=== PATIENT | male | born 1955 | race Caucasian/White ===

== ENCOUNTER 2021-04-16 13:27 | Emergency (ER) | payer OTHER ==
[~2021-04-16] VITALS: Ht 172.7 cm; Wt 108.9 kg
[~2021-04-16 13:27] MED LIST: ALBUTEROL SULF8.5 GM INH; ALLERGY EYE DRO10 M1 OP; ALPHA LIPOIC A300 MG PO; AMLODIPINE BESY10 MG PO; ARNUITY ELLIP100 MCG INH; ASPIRIN81 MG PO; ATROVENT HFA12.9 GM INH; CONSTULOSE10 GM/15 M PO; CORGARD40 MG PO; COZAAR50 MG PO; CRESTOR10 MG PO; DOCUSATE SODIU250 MG PO; FLOVENT DISKU250 MCG INH; FLUCONAZOLE50 MG PO; FLUOXETINE HCL20 MG PO; GABAPENTIN600 MG PO; HUMALOG100 UNITS/ IV; HYDROCHLOROTHIA25 MG PO; ISOSORBIDE MONO30 MG PO; KEPPRA500 MG PO; LANTUS100 UNITS/ SUB-Q; LATANOPROST2.5 ML OPTH; LOTRIMIN AF24 GM TOP; MELOXICAM15 MG PO; NITROSTAT0.4 MG SL; OMEPRAZOLE20 MG PO; SIMVASTATIN20 MG PO; SYNTHROID50 MCG PO; TUDORZA PRESS400 MCG INH; ZYRTEC10 MG PO
[2021-04-16] MEDS ORDERED: METOPROLOL SUCC50 MG PO (15:46)
[2021-04-16] MEDS ORDERED: METFORMIN HCL500 M2 PO (15:46)
== END 2021-04-16 16:25 | disposition home or self-care (01) ==
LOC: ED 13:27
DX: N20.0 Calculus of kidney (principal); N28.1 Cyst of kidney, acquired; E27.8 Other specified disorders of adrenal gland; K74.60 Unspecified cirrhosis of liver; E11.9 Type 2 diabetes mellitus without complications; E78.00 Pure hypercholesterolemia, unspecified; I10 Essential (primary) hypertension; G40.909 Epilepsy, unspecified, not intractable, without status epilepticus; Z87.891 Personal history of nicotine dependence; Z88.2 Allergy status to sulfonamides; Z88.8 Allergy status to other drugs, medicaments and biological substances; Z79.4 Long term (current) use of insulin; Z79.82 Long term (current) use of aspirin; Z79.899 Other long term (current) drug therapy
CPT/HCPCS: 74176; 80053; 81001; 85025; 96374; 96375; 99284-25; J1885; J2405

== ENCOUNTER 2022-01-23 05:51 | Day surgery (SDC) | payer OTHER ==
[~2022-01-23] VITALS: Ht 172.7 cm; Wt 105.0 kg
[~2022-01-23 05:51] MED LIST changes: +ACETAZOLAMIDE250 MG; +METFORMIN HCL500 M2 PO; +METOPROLOL SUCC50 MG PO
--- NOTE | 2022-01-23 06:37 | NUR ---
PATIENT CBG 58, NEW ORDERS FOR DEXTROSE PER COOLER OPERATOR. ORDERS TO REPEAT BLOOD SUGAR 20 MINUTES AFTER ADMINISTERING DEXTROSE. PATIENT VERBALIZED UNDERSTANDING. STATED HE HAD HIS BLOOD SUGAR TAKEN THIS MORNING BEFORE ARRIVING AND WAS LOW BUT [facility].
--- NOTE | 2022-01-23 08:50 | NUR ---
01/23/22 0850 Savita Holguin 0808 PT ARRIVED IN PACU SLEEPY WITH NO C/O'S. ABD SOFT AND PASSING FLATUS. 0811 BLOOD SUGAR 76. NO NEW ORDERS. 0820 PT SITTING UP IN BED DRINKING JUICE AND EATING PUDDING. 0830 UP TO BATHROOM. VOIDED 300ML AND PASSING FLATUS. 0847 LEFT VIA W/C WITH TRANSPORT GUARDS.
--- NOTE | 2022-01-23 10:46 | OR ---
[facility] [address] [place], [place] [address] Signed DATE OF OPERATION: 01/23/2022 SURGEON: Juan Plascencia MD PREOPERATIVE DIAGNOSES: 1. History of polyps. 2. Chronic constipation. POSTOPERATIVE DIAGNOSIS: Polyps x1, right colon. PROCEDURE: Total colonoscopy to cecum with cold snare polypectomy x1. ANESTHESIA: Intravenous sedation, propofol infusion, Ghanshyam Simon CRNA INDICATIONS: This 66-year-old white man is a prisoner at [facility] and a patient of SHELBY Smith. He was referred for colonoscopy on the basis of history of polyps. He is said to have had polyps excised elsewhere. He is currently a prisoner at [facility] and he is symptom free, having no bleeding, diarrhea or constipation. He has previously undergone upper endoscopy as well. He has a history of coronary artery bypass, cirrhosis, COPD and history of COVID. He has more recently complained of constipation. He has been treated for hepatitis C. He is admitted at this time to undergo colonoscopy for surveillance. He understands the risks of bleeding, infection, and perforation. FINDINGS: The prep was good. Complete colonoscopy was undertaken to the cecum without question. He had a single sessile polyp in the distal ascending colon which was excised with cold snare technique. Complete excision was accomplished. The remaining colon was normal. PROCEDURE: The patient was taken to the surgical endoscopy suite and placed in the lateral decubitus position, given intravenous sedation with propofol infusional technique with full cardiopulmonary monitoring. Digital rectal examination was found to be normal. An Olympus video colonoscope was passed in the rectum and manipulated throughout the colon ultimately intubating the cecum itself. The ileocecal valve and other cecal findings were normal. The scope was withdrawn and examination undertaken showing a Electronically Signed By: JUAN PLASCENCIA MD 01/23/22 1046 PATIENT NAME: SHU CASEY OPERATIVE REPORT DATE OF : 55 REPORT #: [id number] PHYSICIAN: JUAN PLASCENCIA MD PCP: JOSI SORIANO REPORT IS CONFIDENTIAL AND NOT TO BE RELEASED WITHOUT AUTHORIZATION [facility] [address] [place] [id number] Signed small sessile polyp in the distal ascending colon. This was excised with cold snare technique. Complete excision was accomplished. The scope was further withdrawn and remaining colon was normal. Retroflexed view was normal as well. The scope was removed and the patient was taken to the recovery room in good condition. CONCLUDING DIAGNOSIS: Polyps x1. PLAN: Recommend repeat colonoscopy in three years, sooner if symptoms should occur. He will return to the ongoing care of SHELBY Smith. MD ELINA Gresham/VERONICA /[id number] cc: SHELBY Lange Copies: JOSI SORIANO ~ Electronically Signed By: JUAN PLASCENCIA MD 01/23/22 1046 PATIENT NAME: SHU CASEY OPERATIVE REPORT DATE OF : 55 REPORT #: [id number] PHYSICIAN: JUAN PLASCENCIA MD PCP: JOSI SORIANO REPORT IS CONFIDENTIAL AND NOT TO BE RELEASED WITHOUT AUTHORIZATION
--- NOTE | 2022-01-23 12:57 | EKG ---
[facility] [address] [facility] [place] [address] Signed Sinus rhythm with 1st degree AV block Possible Inferior infarct (cited on or before 06-SEP-2020) Abnormal ECG When compared with ECG of 06-SEP-2020 07:32, premature ventricular complexes are no longer present CT interval has increased Questionable change in QRS axis T wave inversion no longer evident in Inferior leads Nonspecific T wave abnormality, improved in Lateral leads Confirmed by TRESA DEAN MD ([id number]) on 01/23/2022 12:56:50 PM Electronically Signed By: TRESA DEAN MD 01/23/22 1257 PATIENT NAME: SHU CASEY Electrocardiogram DATE OF : 55 PHYSICIAN: TRESA DEAN MD REPORT #: [id number] REPORT IS CONFIDENTIAL AND NOT TO BE RELEASED WITHOUT AUTHORIZATION
--- NOTE | 2022-01-24 11:37 | PATH ---
[facility] [address] [place], [place] [address] Signed SPECIMEN(S): A PROXIMAL COLON POLYP SPECIMEN SOURCE: A. PROXIMAL COLON POLYP CLINICAL HISTORY: Colonoscopy. History of polyps. Postop: Polyps x 1. FINAL PATHOLOGIC DIAGNOSIS: Colon, proximal, polyp, polypectomy: - Fragments of tubular adenoma. - Negative for high-grade dysplasia or malignancy. NAL:cml:C2NR MICROSCOPIC EXAMINATION: Histologic sections of all submitted blocks are examined by light microscopy. These findings, together with the gross examination, support the pathologic diagnosis. GROSS DESCRIPTION: The specimen, labeled "HARTLEY, 1," and designated on the requisition "proximal colon polypectomy," is received in formalin and consists of three fragments of red-pink tissue (0.3 cm in greatest dimension). The specimen is submitted entirely in cassette (A1). AC (under the direct supervision of a pathologist) The Gross Description was prepared using a voice recognition system. The report was reviewed for accuracy; however, sound-alike word errors, addition and/or deletions may occur. If there is any question about this report, please contact Client Services. PERFORMING LABORATORY: The technical component was performed by [facility], [address] [place] [id number] (CLIA# [id number]). [facility] [address] [address] (CLIA# [id number]). Diagnostician: Ariane Sylvester MD Pathologist Electronically Signed 01/24/2022 PATIENT NAME: SHU CASEY PATHOLOGY DATE OF : 55 REPORT #: [id number] PHYSICIAN: JORDAN EDGAR PCP: JOSI SORIANO REPORT IS CONFIDENTIAL AND NOT TO BE RELEASED WITHOUT AUTHORIZATION [address] [place], [place] [address] Signed Copies: ~ [facility] : 55 REPORT #: [id number] PHYSICIAN: JORDAN PATHOLOGY PCP: JOSI SORIANO REPORT IS CONFIDENTIAL AND NOT TO BE RELEASED WITHOUT AUTHORIZATION
== END 2022-01-23 08:47 | disposition home or self-care (01) ==
LOC: DS 05:51 → OPS 05:51 → DS 07:30 → OPS 08:47 → DS 11:00 → OPS 11:00
PROVIDERS: ATTEND Surgery
PROC: 0DBF8ZX Excision of Right Large Intestine, Via Natural or Artificial Opening Endoscopic, Diagnostic (ICD-10-PCS; principal; 2022-01-23 06:45)
DX: D12.2 Benign neoplasm of ascending colon (principal); J44.9 Chronic obstructive pulmonary disease, unspecified; G20 Parkinson's disease; I10 Essential (primary) hypertension; I25.2 Old myocardial infarction; B19.20 Unspecified viral hepatitis C without hepatic coma; E66.01 Morbid (severe) obesity due to excess calories; K43.2 Incisional hernia without obstruction or gangrene; H26.9 Unspecified cataract; Z86.19 Personal history of other infectious and parasitic diseases; Z86.16 Personal history of COVID-19; Z90.49 Acquired absence of other specified parts of digestive tract
CPT/HCPCS: 36415; 80053; 85025; 93005; 93010; J2001; J2704; J7121

== ENCOUNTER 2022-02-13 05:47 | Day surgery (SDC) | payer OTHER ==
[2022-02-13] MEDS ORDERED: IBUPROFEN600 MG PO (09:03)
[2022-02-13] MEDS ORDERED: HYDROCODON-ACE1 EA10 PO (09:03)
[2022-02-13] MEDS ORDERED: ACETAMINOPHEN500 MG PO (09:04)
--- NOTE | 2022-02-13 09:21 | NUR ---
02/13/22 0921 Savita Holguin 0848 PT ARRIVED IN PACU NON RESPONSIVE TO NOXIOUS STIMULI WITH OPA IN PLACE. CLASSIFICATION CONTROL CLERK DOING JAW THRUST, WHILE BREATHING SOUNDED "WET". ORAL SUCTIONING DONE. RN TOOK OVER JAW THRUST. 0853 PT COUGHING. OPA REMOVED AND ORALY SUCTIONED. 0905 RESTING. NO C/O'S. 0916 C/O ABD PAIN 6.5/10. FENTANYL 50MCG GIVEN IVP. 09 SATS DROPPED TO 86% ON RA. ENCOURAGED COUGH, DEEP BREATHING. SATS INCREASED TO 88%. O2 @2L VIA NC PLACED. SATS 90-95%. TRANSPORT GUARDS AT BEDSIDE DURING RECOVERY.
--- NOTE | 2022-02-13 09:52 | NUR ---
PT RESTING IN BED WITH EYES CLOSED, RESP EVEN AND UNLABORED IN 2L NC. [facility] GUARDS AT BEDSIDE. PT DENIES NAUSEA OR PAIN WHEN ASKED, STATES "JUST A LITTLE ITCH ON MY NOSE." PT PROVIDED ICED WATER AND PUDDING PER REQUEST.
--- NOTE | 2022-02-13 10:16 | NUR ---
PT TOLERATES FIRST PUDDING WELL WITH NO N/V AND PROVIDED SECOND PER REQUEST. PT STATES "MY PAIN HAS DECREASED 5.9 FROM 6.2" REPORTS TOLERABLE. [facility] GUARDS REMAIN AT BEDSIDE.
--- NOTE | 2022-02-13 11:29 | NUR ---
[id number]: O2 REMOVED AND PT ABLE TO MAINTAIN SATS GREATER THAN 90% ON RA. PT ENCOURAGED TO DRINK WATER AND NOTIFY RN OF URGE TO VOID. [id number]: PT UP TO BATHROOM WITH RN AND GUARD WITH FOOT CUFFS IN PLACE. PT ABLE TO VOID 200 MLS CONCENTRATED YELLOW URINE WITH NO PROBLEMS. BACK TO DS RM 10 TO GET DRESSED FOR DC WITH TWO [facility] GUARDS. [id number]: DC INSTRUCTIONS PRESENTED VERBALLY AND WRITTEN TO PT, DC ENVELOPE PROVIDED TO GUARD WITH PAIN RX. IV REMOVED AND COBAN PRESSURE DRESSING PLACED AND ENCOURAGED TO REMOVED IN APPROX 15 MINUTES. PT DC VIA WC WITH TRANSPORT GUARDS TO [facility]. [id number]: REPORT CALLED TO KETURAH BAUMANN AT [facility].
--- NOTE | 2022-02-13 16:17 | NUR ---
[id number]: PT INHALER FOUND IN OR AND [facility] NOTIFIED. INHALER PLACED IN PLASTIC BAG WITH PT NAME AND GIVEN TO SWITCH BOARD FOR [facility] TO RETRIEVE.
--- NOTE | 2022-02-14 15:34 | OR ---
[facility] [address] [place], [place] [address] Signed DATE OF OPERATION: 02/13/2022 SURGEON: Juan Plascencia MD PREOPERATIVE DIAGNOSES: 1. Incarcerated incisional hernia at umbilicus (history of laparoscopic procedure). 2. Morbid obesity. 3. Numerous medical problems including chronic obstructive pulmonary disease. 4. History of coronary artery bypass grafting. 5. Cirrhosis (without ascites). POSTOPERATIVE DIAGNOSIS: Incarcerated incisional hernia (omentum and portion of transverse colon). PROCEDURES: 1. Repair of incarcerated incisional hernia at umbilicus. 2. Implantation of Prolene mesh (underlay technique with closure of fascia). ANESTHESIA: General endotracheal; Kelsea Amanda CRNA and local 10 mL of 0.25% Marcaine with epinephrine. INDICATIONS: This 66-year-old white man is a patient of Josi Soriano at [facility], where he has been incarcerated for quite some time. He underwent a laparoscopic cholecystectomy in the past and has developed a hernia in the region of the umbilicus related to the trocar site. Initially, the hernia was reducible and seen initially in November of 2021. In the meantime, the hernia is somewhat increased in size and is not reducible and consistent with incarcerated incisional hernia. He has no signs of bowel obstruction. No sign of local erythema. He is admitted to undergo repair of the hernia, understands the risks of bleeding, infection, recurrence, and so on. FINDINGS: Incarcerated viscus was that of the omentum and small portion of the transverse colon, this was ultimately reduced. The fascial defect was relatively small between 2 and 3 cm overall. Implantation of Prolene mesh was undertaken in the properitoneal space and transverse, reapproximated the fascial layer undertaken as well. He tolerated the procedure well. Notably, he did have a fair amount of coughing and straining at conclusion of procedure at the time of extubation, which abdominal wall stabilization was undertaken. There was no clinical evidence of disrupted repair despite all of the Electronically Signed By: JUAN PLASCENCIA MD 02/14/22 1534 PATIENT NAME: SHU CASEY OPERATIVE REPORT DATE OF : 55 REPORT #: [id number] PHYSICIAN: JUAN PLASCENCIA MD PCP: JOSI SORIANO REPORT IS CONFIDENTIAL AND NOT TO BE RELEASED WITHOUT AUTHORIZATION [facility] [address] [place], [place] [address] Signed straining. DESCRIPTION OF PROCEDURE: The patient was brought to the operating room, given a general endotracheal anesthetic. Preoperative antibiotic Ancef was given. Sequential compressive stockings used and heparin continuously administered. The umbilical fold was relatively deep and the hernia was rather bulky about the size of a tennis ball. It was not reducible despite relaxation. Cleansing of the skin was undertaken with chlorhexidine solution. A curvilinear incision was made in the lateral aspect of the umbilical fold. Dissection carried through the skin and dermis with sharp dissection. Noted immediately was herniated fat, this was freed circumferentially showing the fascial defect to be only about 2-3 cm at most. Despite every effort, the hernia could not be reduced at that point. The hernia sac was opened and the hernia contents examined and found to be incarcerated omentum with small portion of transverse colon. This was sequentially ultimately reduced in the entire incarcerated portion back into the abdominal cavity. A plane was developed between the hernia sac (peritoneal layer) and the overlying fascia. Circumferential clearing was undertaken at least 2-3 cm. The redundant hernia sac was excised and then reapproximated with a running 2-0 Vicryl suture. A circular piece of Prolene mesh was secured to the properitoneal space with interrupted 0-Prolene suture. This covered the defect fully. The fascia was then reapproximated transversely with interrupted vertical mattress 0-Prolene with Prolene pledgets. A 10 mL of 0.25% Marcaine with epinephrine injected locally. Nallely layer was reapproximated with interrupted 2-0 Vicryl. The skin was closed with running subcuticular 3-0 Vicryl. Steri-Strips were applied as was an Acticoat dressing. During the time with emergence from anesthesia, he had a fair amount of straining and so forth the abdominal wall stabilized as best could be. I felt no disruption of fascial repair. Ultimately, the straining ceased and he appeared to be doing well. Abdominal binder was applied. The patient was ultimately transferred to the recovery room in good condition, having suffered no complication. Sponge, needle, and instrument count reported correct x3. MD ELINA Gresham/MODL /[id number] Electronically Signed By: JUAN PLASCENCIA MD 02/14/22 1534 PATIENT NAME: SHU CASEY OPERATIVE REPORT DATE OF : 55 REPORT #: [id number] PHYSICIAN: JUAN PLASCENCIA MD PCP: JOSI SORIANO REPORT IS CONFIDENTIAL AND NOT TO BE RELEASED WITHOUT AUTHORIZATION [facility] [address] [place], [place] [address] Signed cc: SHELBY Lange Copies: JOSI SORIANO ~ Electronically Signed By: JUAN PLASCENCIA MD 02/14/22 1534 PATIENT NAME: SHU CASEY JOSE OPERATIVE REPORT DATE OF : 55 REPORT #: [id number] PHYSICIAN: JUAN PLASCENCIA MD PCP: JOSI SORIANO REPORT IS CONFIDENTIAL AND NOT TO BE RELEASED WITHOUT AUTHORIZATION
== END 2022-02-13 11:00 | disposition home or self-care (01) ==
LOC: DS 05:47
PROVIDERS: ATTEND Surgery
PROC: 0WUF0JZ Supplement Abdominal Wall with Synthetic Substitute, Open Approach (ICD-10-PCS; principal; 2022-02-13 06:45)
DX: K43.0 Incisional hernia with obstruction, without gangrene (principal); G20 Parkinson's disease; E66.01 Morbid (severe) obesity due to excess calories; J44.9 Chronic obstructive pulmonary disease, unspecified; Z95.1 Presence of aortocoronary bypass graft; K74.60 Unspecified cirrhosis of liver; I44.0 Atrioventricular block, first degree; Z86.16 Personal history of COVID-19; Z90.49 Acquired absence of other specified parts of digestive tract; I25.2 Old myocardial infarction; K59.09 Other constipation
CPT/HCPCS: 71045; J0690; J1100; J1644; J1885; J2250; J2370; J2405; J2704; J3010; J7121

== ENCOUNTER 2022-10-11 07:45 | Emergency (ER) | payer OTHER ==
[~2022-10-11] VITALS: Ht 172.7 cm; Wt 109.0 kg
[~2022-10-11 07:45] MED LIST changes: +ACETAMINOPHEN500 MG PO; -ASPIRIN81 MG PO; -GABAPENTIN600 MG PO; +HYDROCODON-ACE1 EA10 PO; +IBUPROFEN600 MG PO; -ISOSORBIDE MONO30 MG PO; +ISOSORBIDE MONO60 MG PO; +LO-DOSE ASPIRIN81 MG PO; -MELOXICAM15 MG PO; +MELOXICAM7.5 MG PO; -METOPROLOL SUCC50 MG PO; +NEURONTIN400 MG PO; -OMEPRAZOLE20 MG PO; +OMEPRAZOLE40 MG PO; -SYNTHROID50 MCG PO; +SYNTHROID75 MCG PO; +TOPROL XL50 MG PO
[2022-10-11] MEDS ORDERED: SEMGLEE (Y100 UNIT/1 SUB-Q ×2 (08:04→08:05)
[2022-10-11] MEDS ORDERED: SINEMET 25-1001 EACH PO (08:09)
[2022-10-11] MEDS ORDERED: BRIMONIDINE TART5 ML OU (08:11)
[2022-10-11] MEDS ORDERED: COSOPT PF EYE1 EACH OS (08:12)
[2022-10-11] MEDS ORDERED: DOCUSATE SODIU250 MG PO (08:13)
[2022-10-11] MEDS ORDERED: NOVOLIN R100 UNIT/1 INJ (08:23)
[2022-10-11] MEDS ORDERED: AIRDUO RESPICL1 EAC1 INH (08:26)
--- NOTE | 2022-10-12 21:24 | EKG ---
[facility] [address] [facility] [place], [place] [address] Signed Sinus rhythm with 1st degree AV block Possible Left atrial enlargement Nonspecific ST and T wave abnormality Abnormal ECG No previous ECGs available Confirmed by TRESA DEAN MD ([id number]) on 10/12/2022 9:24:42 PM Electronically Signed By: TRESA DEAN MD 10/12/222123 PATIENT NAME: SHU CASEY JOSE Electrocardiogram DATE OF : 55 PHYSICIAN: TRESA DEAN MD REPORT #: [id number] REPORT IS CONFIDENTIAL AND NOT TO BE RELEASED WITHOUT AUTHORIZATION
== END 2022-10-11 12:10 | disposition short-term general hospital (02) ==
LOC: ED 07:45
DX: I21.4 Non-ST elevation (NSTEMI) myocardial infarction (principal); I50.9 Heart failure, unspecified; E11.9 Type 2 diabetes mellitus without complications; E78.00 Pure hypercholesterolemia, unspecified; F43.10 Post-traumatic stress disorder, unspecified; G40.909 Epilepsy, unspecified, not intractable, without status epilepticus; I11.0 Hypertensive heart disease with heart failure; Z88.8 Allergy status to other drugs, medicaments and biological substances; Z79.899 Other long term (current) drug therapy; Z79.82 Long term (current) use of aspirin; Z79.4 Long term (current) use of insulin; Z20.822 Contact with and (suspected) exposure to COVID-19
CPT/HCPCS: 36415; 36600; 71045; 80053; 82803; 83880; 84484; 85025; 85730; 87502; 93005; 93010; 94640; 96374; 96375; 99285-25; C9803; J1644; J1940; U0003

== ENCOUNTER 2022-10-14 18:52 | Emergency (ER) | payer OTHER ==
[~2022-10-14] VITALS: Ht 172.7 cm; Wt 108.9 kg
[~2022-10-14 18:52] MED LIST changes: +AIRDUO RESPICL1 EAC1 INH; +BRIMONIDINE TART5 ML OU; +COSOPT PF EYE1 EACH OS; +NOVOLIN R100 UNIT/1 INJ; +SEMGLEE (Y100 UNIT/1 SUB-Q; +SINEMET 25-1001 EACH PO
--- OUTSIDE RECORDS SUMMARY | 2022-10-14 18:58 | XMS ---
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 Norberto has no Care Guidelines for this patient. [facility] VIS[facility] (12 MO.) [facility] NOTE: Visits indicate total known visits. ED/[facility] VISIT TRACKING (12 MO.) [facility]: Emergency COMPLAINT: - SHORTNESS OF BREATH 10/11/2022 07:45 SUSANNE Fisher OR TYPE: Emergency COMPLAINT: - SOB INPATIENT VISIT TRACKING (12 MO.) 10/11/2022 13:[address] [place] [address] Kalee ORELLANA TYPE: Medical Surgical DIAGNOSES: - CHF vs NSTEMI - Acute systolic (congestive) heart failure [email or web address]
[2022-10-14] MEDS ORDERED: PRIMIDONE50 MG PO (19:15)
[2022-10-14] MEDS ORDERED: NADOLOL40 MG PO (19:15)
[2022-10-14] MEDS ORDERED: FUROSEMIDE20 MG PO (19:17)
--- NOTE | 2022-10-16 14:02 | EKG ---
[facility] [address] [facility] [place] [address] Signed Sinus bradycardia with 1st degree AV block Abnormal QRS-T angle, consider primary T wave abnormality Abnormal ECG When compared with ECG of 11-OCT-2022 07:47, Nonspecific T wave abnormality no longer evident in Inferior leads Nonspecific T wave abnormality, improved in Lateral leads Confirmed by TRESA DEAN MD ([id number]) on 10/16/2022 2:02:16 PM Electronically Signed By: TRESA DEAN MD 10/16/22 1402 PATIENT NAME: SHU CASEY Electrocardiogram DATE OF : 55 PHYSICIAN: TRESA DEAN MD REPORT #: [id number] REPORT IS CONFIDENTIAL AND NOT TO BE RELEASED WITHOUT AUTHORIZATION
== END 2022-10-14 22:34 | disposition home or self-care (01) ==
LOC: ED 18:52
DX: R41.0 Disorientation, unspecified (principal); I11.0 Hypertensive heart disease with heart failure; I50.9 Heart failure, unspecified; I25.2 Old myocardial infarction; Z20.822 Contact with and (suspected) exposure to COVID-19; E11.9 Type 2 diabetes mellitus without complications; E78.00 Pure hypercholesterolemia, unspecified; G40.909 Epilepsy, unspecified, not intractable, without status epilepticus; Z87.891 Personal history of nicotine dependence; Z88.8 Allergy status to other drugs, medicaments and biological substances; Z79.899 Other long term (current) drug therapy; Z79.4 Long term (current) use of insulin
CPT/HCPCS: 36415; 70450; 71045; 80053; 81001; 83880; 84484; 85025; 87502; 93005; 93010; 94640; 99285-25; C9803; U0003

== ENCOUNTER 2023-05-23 17:11 | Emergency (ER) | payer OTHER ==
[~2023-05-23] VITALS: Ht 172.7 cm; Wt 108.9 kg
[~2023-05-23 17:11] MED LIST changes: +FUROSEMIDE20 MG PO; +NADOLOL40 MG PO; +PRIMIDONE50 MG PO
[2023-05-23 19:09] VITALS: BP 122/82
== END 2023-05-23 19:09 | disposition home or self-care (01) ==
LOC: ED 17:11
DX: M70.41 Prepatellar bursitis, right knee (principal); E11.9 Type 2 diabetes mellitus without complications; E78.00 Pure hypercholesterolemia, unspecified; I11.0 Hypertensive heart disease with heart failure; F43.10 Post-traumatic stress disorder, unspecified; I50.9 Heart failure, unspecified; G40.909 Epilepsy, unspecified, not intractable, without status epilepticus; Z87.891 Personal history of nicotine dependence; Z88.8 Allergy status to other drugs, medicaments and biological substances; Z79.899 Other long term (current) drug therapy; Z79.4 Long term (current) use of insulin
CPT/HCPCS: 73560; 73700; 99284-25

== ENCOUNTER 2023-05-28 13:55 | Inpatient (IN) | payer OTHER ==
[~2023-05-28] VITALS: Ht 172.7 cm; Wt 113.9 kg
[~2023-05-28 13:55] MED LIST changes: -ALBUTEROL SULF8.5 GM INH; -FUROSEMIDE20 MG PO; +LASIX40 MG PO; -LATANOPROST2.5 ML OPTH; +OMEPRAZOLE20 MG PO; -OMEPRAZOLE40 MG PO; +SYNTHROID100 MCG PO; -SYNTHROID75 MCG PO; +VENTOLIN HFA18 GM INH; +XALATAN2.5 ML OU
--- OUTSIDE RECORDS SUMMARY | 2023-05-28 14:02 | XMS ---
PreManage Notification: SHU CASEY Security Manager Route Events No recent Security Events currently on file CRITERIA MET - [facility] - 2 Visits in 30 Days CARE PROVIDERS There are no care providers on record at this time. Norberto has no Care Guidelines for this patient. [place] VISIT COUNT (12 MO.) 4 [facility] T[facility] 4 NOTE: Visits indicate total known visits. ED/C VISIT TRACKING (12 MO.) 05/28/2023 13:[address] [facility] [address] [place] OR TYPE: Emergency COMPLAINT: - R LEG SWOLLEN/RED/HOT 05/23/2023 17:12 SUSANNE Fisher OR TYPE: Emergency COMPLAINT: - WOUND CHECK DIAGNOSES: - Allergy status to other drugs, medicaments and biological substances - Epilepsy, unspecified, not intractable, without status epilepticus - Heart failure, unspecified - Hypertensive heart disease with heart failure - terminal operator (current) use of insulin - Other computer terminal operator (current) drug therapy - Personal history of nicotine dependence - Post-traumatic stress disorder, unspecified - Prepatellar bursitis, right knee - Pure hypercholesterolemia, unspecified - Type 2 diabetes mellitus without complications 10/14/2022 18:52 SUSANNE Fisher [place] TYPE: Emergency COMPLAINT: - SHORTNESS OF BREATH DIAGNOSES: - Allergy status to other drugs, medicaments and biological substances - Contact with and (suspected) exposure to COVID-19 - Disorientation, unspecified - Epilepsy, unspecified, not intractable, without status epilepticus - Heart failure, unspecified - Hypertensive heart disease with heart failure - half-way (current) use of insulin - Old myocardial infarction - Other computer terminal operator (current) drug therapy - Personal history of nicotine dependence - Pure hypercholesterolemia, unspecified - Shortness of breath - Type 2 diabetes mellitus without complications 10/11/2022 07:45 SUSANNE Fisher [place] TYPE: Emergency COMPLAINT: - SOB DIAGNOSES: - Allergy status to other drugs, medicaments and biological substances - Contact with and (suspected) exposure to COVID-19 - Epilepsy, unspecified, not intractable, without status epilepticus - Heart failure, unspecified - Hypertensive heart disease with heart failure - half-way (current) use of aspirin - terminal operator (current) use of insulin - Non-ST elevation (NSTEMI) myocardial infarction - Other fci (current) drug therapy - Post-traumatic stress disorder, unspecified - Pure hypercholesterolemia, unspecified - Shortness of breath - Type 2 diabetes mellitus without complications INPATIENT VISIT TRACKING (12 MO.) 10/11/2022 13:42 [place] Yvette ORELLANA (Lucia Myers) TYPE: Medical Surgical DIAGNOSES: - Acute systolic (congestive) heart failure - CHF vs NSTEMI [email or web address]
[2023-05-28 17:43] LABS: HEMATOCRIT 35.8 % (35.0-50.0); HEMOGLOBIN 11.6 g/dL (12.0-18.0); MCHC 32.5 g/dl (30-36); MCV 86.3 fl (81-99); PLATELET COUNT 255 K/uL (140-440); RBC 4.15 M/ul (4.3-5.7); RDW 14.6 (10.5-15.0)
[2023-05-28 17:51] LABS: ALBUMIN/GLOBULIN RATIO 0.57 (1.1-2.4); ANION GAP 11.4 (7-21); BILIRUBIN, TOTAL 0.7 ng/dL (0.2-1.0); BUN/CREATININE RATIO 25.67 (6.0-28.6); CREATININE, SERUM 1.48 mg/dL (0.70-1.30); POTASSIUM 4.4 mmol/L (3.5-5.1); PROTEIN, TOTAL 8.3 g/dL (6.4-8.2)
[2023-05-28 18:25] LABS: BASOPHILS, MANUAL DIFF 1; EOSINOPHILS, MANUAL DIFF 2; LYMPHOCYTES, MANUAL DIFF 8; MONOCYTES, MANUAL DIFF 15; NEUTROPHILS, MANUAL DIFF 74
[2023-05-28 19:47] LABS: INFLUENZA B NAA NEGATIVE (NEGATIVE); RESPIRATORY SYNCYTIAL VIR NAA NEGATIVE (NEGATIVE)
--- NOTE | 2023-05-28 21:05 | NUR ---
PT ADMITTED TO ROOM 109 FROM ED. A/O;
[2023-05-28 21:10] VITALS: BP 151/57
--- NOTE | 2023-05-28 22:09 | NUR ---
Pt arrived to rm 109 from the ER via stretcher. 4 persons to slide Pt over to bed. Pt c/o pain to Rt knee. Redness and heat noted. small amount of drainage present from MD aspiration. Pt has 2 correction officers with, provided coffee and water as needed. BG 81, Pt given sandwhich , coffee and water. Skin assessment completed.
--- NOTE | 2023-05-28 23:00 | NUR ---
GUARDS ASKED IF PT CAN EAT THE FOOD THAT HE BROUGHT FROM THE RETIREMENT, PERMISSION GIVEN. USES URINAL WITH ASSISTANCE.
--- NOTE | 2023-05-29 00:55 | NUR ---
report received from charger tester bella, this rn to take over pt care at this time. pt resting quietly in bed with eyes closed, awoke to voice. denies needs or concerns, guards x2 in room. eoci restraints in place. reddness noted in circular shape on top of knee cap area. iv site wnl, fluids infusing as directed.
--- NOTE | 2023-05-29 05:21 | NUR ---
SEE PAPER CHARTING REGARDING DOCUMENTION FROM 0100 TO 0520, DUE TO MEDI-TECH DOWN TIME.
[2023-05-29 05:47] LABS: BASOPHILS 0.2 % (0-2); EOSINOPHILS 2.7 % (0-6); HEMATOCRIT 34.1 % (35.0-50.0); HEMOGLOBIN 10.9 g/dL (12.0-18.0); LYMPHOCYTES 10.3 % (24-44); MCH 27.6 (27-36); MCHC 31.9 g/dl (30-36); MCV 86.7 fl (81-99); MONOCYTES 8.5 % (0-12); NEUTROPHILS 78.3 % (39-80); PLATELET COUNT 228 K/uL (140-440); RBC 3.94 M/ul (4.3-5.7); RDW 14.4 (10.5-15.0)
[2023-05-29 06:15] LABS: ALBUMIN 2.6 g/dL (3.4-5.0); ALBUMIN/GLOBULIN RATIO 0.54 (1.1-2.4); BILIRUBIN, TOTAL 0.6 ng/dL (0.2-1.0); BUN/CREATININE RATIO 22.4 (6.0-28.6); CALCIUM 8.8 mg/dL (8.5-10.1); CREATININE, SERUM 1.25 mg/dL (0.70-1.30); MAGNESIUM 1.9 mg/dL (1.8-2.4); PHOSPHORUS, INORGANIC 3.6 mg/dL (2.5-4.9); PROTEIN, TOTAL 7.4 g/dL (6.4-8.2)
[2023-05-29 06:37] VITALS: BP 156/78
--- NOTE | 2023-05-29 06:50 | NUR ---
in room to round on pt, vs and i&o's collected. pt heavily incontinent of urine, pt educated to use call light when having to void and staff will assist with urinal. guards x2 remains in room. bola care done and new attends in place, pt boosted in bed. spo2 upper 80's to low 90's, does not sustain in the 90's, hx sleep apnea. pt placed on 1lnc, spo2 now sustaining in the 90's. iv site wnl, fluids infusing as directed. pt forgetful regarding exact date, reoriented. no additional needs, reddness remains unchanged compared to start of [facility].
--- NOTE | 2023-05-29 07:20 | NUR ---
PT REPORT RECEIVED FROM KETURAH MCKINNEY. PT IS RESTING IN BED, WAIST AND ANKLE SHACKLES ON, EYES CLOSED, TELEVISION ON, 2 CORRECTIONAL OFFICERS IN ROOM WITH PT. PT BREATHING IS REGULAR, EVEN, AND NON-LABORED AND HE AWAKES EASILY TO QUIET NOISE. PT DENIES NEEDS AT THIS TIME. ENCOURAGED TO USE CALL LIGHT WHEN HE NEEDS TO URINATE OR HAVE A BM RATHER THAN VOID OR DEFECATE IN HIS PANTS. PT VERBALIZED UNDERSTANDING.
--- NOTE | 2023-05-29 08:33 | NUR ---
RESPOND TO CALL LIGHT. PT NEEDS TO HAVE A BM. 2-PERSON ASSIST PT TO A SEATED POSITION AT THE EDGE OF THE BED (THIS RN AND ONE OFFICER, WHO EVENTUALLY OBTAINED PERMISSION TO REMOVE ONE WRIST SHACKLE). PT KEPT REPEATING "THIS IS IMPOSSIBLE". PRAISED PT FOR HIS EFFORTS AND SPOKE ENCOURAGINGLY TO HIM WHILE DIRECTING HIS MOVEMENTS TO THE BSC THAT WAS PLACED PERPENDICULAR TO THE BED. PT STATES HE CAN STAND, AND SHUFFLE, BUT NOT WITHOUT PAIN IN HIS RIGHT KNEE. PT HAD A MEDIUM SOFT FORMED BM AND URINATED ON THE FLOOR IN FRONT OF HIM WHILE SEATED ON THE COMMODE. MALE OFFICER REMAINED IN ROOM WITH PT AND ASSISTED THIS RN WITH ASSISTING PT WITH HIS MOVEMENTS OFF THE COMMODE AND BACK IN TO BED. GENNA CARE PROVIDED TO PT AND A CLEAN BRIEF PUT ON. MANUFACTURER REPRESENTATIVE REQUESTED SBA FROM THIS RN WHILE HE ADJUSTED THE PT'S BELLY CHAINS. PT WAS EASILY REDIRECTED WHEN HE BEGAN TO SPEAK NEGATIVELY ABOUT MOVING. BREAKFAST TRAY IN ROOM, POSITIONED IN FRONT OF PT AT THE HEIGHT LEVEL HE REQUESTED, FRESH ICED WATER PROVIDED. RE-EDUCATED ALL PARTIES ON LOCATIONS OF CALL LIGHTS. NO FURTHER NEEDS AT THIS TIME.
--- NOTE | 2023-05-29 09:15 | NUR ---
ASSESSMENT COMPLETE. PER AM REPORT PATIENT TO CONTINUE IV ABX AND ORTHO CONSULT PENDING. PATIENT TO RETURN TO [facility] WHEN STABLE.
--- NOTE | 2023-05-29 10:10 | NUR ---
RECIEVED HAND OFF REPORT FROM KETURAH DUMONT. PT LAYING IN BED, AWAKE. PT IS CONCERNED ABOUT WHY HE ISNT RECIEVING THE MEDICATIONS HE NORMALLY TAKES. EXPLAINED I JUST CAME ON SHIFT AND WILL LOOK INTO THE MEDICATIONS. ASSESSED PTS RIGHT KNEE. REDDNESS NOTED THAT SPREADS BEHIND KNEE CAP. WARM TO THE TOUCH WITH 1+ PITTING EDEMA AROUND KNEE. ABRASION LOCATED ON THE KNEECAP, NO DRAINAGE NOTED. CALL LIGHT IN REACH. GUARDS AT BEDSIDE.
[2023-05-29 10:30] VITALS: BP 150/72
--- NOTE | 2023-05-29 11:14 | NUR ---
UR NOTE MCG CELLULITIS (ISC) INPATIENT 05/29/23 MET CRITERIA GL DAY 1
[2023-05-29] MEDS ORDERED: CLOPIDOGREL75 MG PO (13:29)
--- NOTE | 2023-05-29 13:45 | NUR ---
PT ON BEDSIDE COMMODE. THIS RN AND RALPH JONES IN ROOM TO ASSIST PT BACK TO BED. PT URINATED ON FLOOR, CONTINENT BM. PT WAS ABLE TO PIVOT TO THE BED. CALL LIGHT IN REACH
[2023-05-29] MEDS ORDERED: INCRUSE ELLI62.5 MCG INH (14:07)
[2023-05-29] MEDS ORDERED: MIRALAX17 GM PO (14:14)
[2023-05-29] MEDS ORDERED: ARNUITY ELLIP100 MCG INH (14:15)
[2023-05-29] MEDS ORDERED: ADULT LOW DOSE81 MG PO (14:16)
[2023-05-29] MEDS ORDERED: COSOPT PF EYE1 EACH OS (14:18)
[2023-05-29] MEDS ORDERED: CARDURA1 MG PO (14:21)
[2023-05-29 14:25] VITALS: BP 158/77
[2023-05-29] MEDS ORDERED: CARAFATE1 GM PO (14:32)
[2023-05-29] MEDS ORDERED: FERROUS SULFAT324 MG PO (14:33)
[2023-05-29] MEDS ORDERED: DOXYCYCLINE HY100 MG PO (14:33)
[2023-05-29] MEDS ORDERED: PETROLATUM TOP (14:34)
[2023-05-29] MEDS ORDERED: TYLENOL325 MG PO (14:36)
[2023-05-29 18:50] VITALS: BP 143/60
--- NOTE | 2023-05-29 19:00 | NUR ---
ASSUMED CARE, PT IN BED, SLEEPING ON AND OFF. DINNER ON PT TRAY, ASKED IF HE WANTED TO EAT, HE STATES HE WILL EVENTUALLY. PT HAS 2 OFFICERS PRESENT. CALL LIGHT IN PLACE. BED LOW AND LOCKED.
--- NOTE | 2023-05-29 20:00 | NUR ---
PT ASLEEP IN BED. ENCOURAGED HIM TO WAKE AND EAT IF HE WANTED HIS TRAY. REMINDED HIS BS WAS GOING TO BE TAKEN SOON. PT AGREED AND ATE ABOUT 25%, STATES NOT VERY HUNGRY. PT HAS 2 OFFICERS PRESENT IN ROOM, HE IS SAFE, SHACKLES ARE REPOSITIONED FOR COMFORT AND SKIN CHECKED. PT USED URINAL.PAIN REAMINS THE SAME AOBUT AN 8 HE SAYS. REPOSITIONED PILLOW FOR COMFORT. PT STATES PX IMPROVED. WEARING 2L O2, CPOX 92%. PT FELL BEACK TO SLEEP. CALL LIGHT IN PLACE
[2023-05-29 20:36] VITALS: BP 163/72
--- NOTE | 2023-05-29 22:00 | NUR ---
PT HAS BEEN ASSISTANT PROFESSOR OF LIFE SCIENCES LIGHT FREQUENTLY, REPOSITONED, HE REQUESTED BLANKETS OFF, THEN WANTED BACK ON. FLUIDS PROVIDED. GUAZE APPLIED UNDER ARM CUFFS DUE TO RUBBING. CPAP ARRIVED AND PT WAS PLEASED, RT ADVISED AND SET UP. PT HAVING DRY BARKY COUGH. PHONED MD AND RECEIVED ORDER FOR DUONEBS. RT ADVISED. PT HAD IMPROVEMENT WITH DUONEB AND PUT CPAP BACK ON. CURRENTLY RESTING, CALL LIGHT IN PLACE. 2 OFFICERS AT BEDSIDE.
--- NOTE | 2023-05-29 22:23 | NUR ---
PT HAVING ASTHMA TYPE COUGH, NON PRODUCTIVE, LCTA. PT STATES HE TAKES 3 INHALERS. PHONED AND REC'D ORDER FOR DUONEB Q4 PRN
--- NOTE | 2023-05-30 | NUR ---
pt repositioned, used urinal, fluids and ensure given. pt c/o severe pain in back, massaged scapula area, oxycodone given. pt has used cpap but wwanted it off, put on nc o2, incresaed to 3L due to mouth breathing. call light in place, 2 officers with him.
[2023-05-30 01:16] VITALS: BP 147/68
--- NOTE | 2023-05-30 01:30 | NUR ---
PT CONTINUES WITH COUGH, MOIST NON PRODUCTIVE. LUNGS CLEAR, UPPER RESP AREA SOUNDS WET, O2 NEEDS INCREASED PHONED MD AND RECEIVED ORDER FOR 40MG IV LASIX X1 DOSE AND DECREASE FLUIDS TO TKO. PT ON 3L O2 87%.
--- NOTE | 2023-05-30 02:00 | NUR ---
PT HAD XL BM, LIQUID. CHANGED AND REPOSITIONED. IV LASIX GIVEN, FLUIDS REDUCED TO TKO. TYLENOL GIVEN FOR PAIN 02/21. PT HAS 2 OFFICERS WITH, CALL LIGHT ACCESSIBLE, BED LOW AND LOCKED. FLUIDS PROVIDED
--- NOTE | 2023-05-30 04:00 | NUR ---
PT RESTING COMFORTABLY. 2 OFFICERS PRESENT. CALL LIGHT IN REACH. IV ABO INFUSING, NO S/SX OF PAIN AT SITE. BED IN LOW POSITION
[2023-05-30 05:43] LABS: HEMATOCRIT 33.6 % (35.0-50.0); HEMOGLOBIN 10.9 g/dL (12.0-18.0); MCH 27.9 (27-36); MCHC 32.4 g/dl (30-36); MCV 86.1 fl (81-99); PLATELET COUNT 242 K/uL (140-440); RDW 14.3 (10.5-15.0)
[2023-05-30 06:00] LABS: ALBUMIN 2.3 g/dL (3.4-5.0); ALBUMIN/GLOBULIN RATIO 0.48 (1.1-2.4); ANION GAP 12.9 (7-21); BILIRUBIN, TOTAL 0.7 ng/dL (0.2-1.0); BUN/CREATININE RATIO 21.18 (6.0-28.6); CALCIUM 8.6 mg/dL (8.5-10.1); CREATININE, SERUM 1.18 mg/dL (0.70-1.30); POTASSIUM 3.9 mmol/L (3.5-5.1); PROTEIN, TOTAL 7.1 g/dL (6.4-8.2)
[2023-05-30 06:07] VITALS: BP 146/74
[2023-05-30 06:14] LABS: BANDS, MANUAL DIFF 1; LYMPHOCYTES, MANUAL DIFF 10; MONOCYTES, MANUAL DIFF 5; NEUTROPHILS, MANUAL DIFF 84
--- NOTE | 2023-05-30 06:16 | NUR ---
PT HAS 2 OFFICERS WITH HIM. HE IS IN HANDCUFFS X4. A/O X3, COOPERATIVE WITH CARES. IV PATENT. FLUIDS REDUCED TO TKO DUE TO FLUID OVERLOAD. IV LASIX GIVEN. USING 3L O2 VIA NC. SATS 88-90%. PT HAD XL BM INCONT. REPOSITIONED TOLERATED. REDNESS HAS NOT CHANGED TO RT KNEE, PAINFUL 03/24. OXY 5MG GIVEN X1 FOR PAIN, EFFECTIVE PT HAS SLEPT, BUT WAKES EASILY. CALL LIGHT IN REACH
--- NOTE | 2023-05-30 07:15 | NUR ---
RECIEVED SUGAR SAMPLER REPORT. PT RESTING IN BED, EYES CLOSED. BREATHING EVEN AND UNLABORED. CPAP W/ 6L ON. SPO2 90%. GUARD AT BEDSIDE. CALL LIGHT NEAR.
[2023-05-30 08:15] VITALS: BP 151/74
--- NOTE | 2023-05-30 08:30 | NUR ---
MORNING ASSESSMENT COMPLETE. PT RESTING IN BED, EYES CLOSED, EASY TO AROUSE. CPAP ON W/ 6L, SPO2 90%. PAIN 9/10, RIGHT KNEE, PRN MEDICATIONS ADMINISTERED (SEE MAR). CRACKLES NOTED IN ALL LOBES, COARSE IN RUL. RIGHT KNEE REMAINS THE SAME, NO CHANGES NOTED. GUARDS AT BEDSIDE.
--- NOTE | 2023-05-30 09:39 | NUR ---
AND RN IN ROOM. PT TAKEN OFF CPAP SPO2 DECREASED TO 85% ON RA. NASAL CANNULA PLACED ON PATIENT AT 5L SPO2 93%. PT EATING BREAKFAST. ERIC AT BEDSIDE.
--- NOTE | 2023-05-30 10:00 | NUR ---
No plan for dc today per Dr. Chavez. Pt to see Dr. Handy today.
--- NOTE | 2023-05-30 12:10 | NUR ---
PT LIGHT BULB TESTER LIGHT NEEDING TO USE URINAL. THIS RN AND KETURAH TERAN IN ROOM CHANGED PTS BRIEF AND DRAW SHEET. BOOSTED IN BED. NC ON PT AT 5L, SPO2 92%. GUARDS AT BEDSIDE.
[2023-05-30 13:06] VITALS: BP 133/67
--- NOTE | 2023-05-30 13:06 | NUR ---
pt sitting up in bed with one guard present at bedside. vitals complete. pt still eating lunch. no needs. call light within reach.
--- NOTE | 2023-05-30 13:20 | NUR ---
Pt report received from KETURAH Calhoun. Pt is resting supine in bed, eyes closed, breathing is regular, even, and non-labored. Pt is on 5LPM NC currently. 2 correctional officers in with pt. Call light made available.
[2023-05-30 18:09] VITALS: BP 141/65
--- NOTE | 2023-05-30 18:43 | NUR ---
IN WITH PT FOR MED ADMINISTRATION. NOTED THE SKIN AROUND THE IV SITE WAS SWOLLEN AND SLIGHTLY REDDENED BUT PT HAS HAD NO C/O PAIN OR TENDERNESS AT SITE. IV FLUSHES WELL, NO RETURN. KETURAH PENA ASSESSED THE SITE WELL.
--- NOTE | 2023-05-30 18:45 | NUR ---
IV INSERTION ATTEMPT IN RAC UNSUCCESSFUL WITH 22G CATHETER, PRESSURE BANDAGE APPLIED. PT HAS NO COMPLAINTS OF BURNING WITH FLUSH OR ABX ADMINISTRATION IN CURRENT IV, NO PAIN, SLIGHT SWELLING AROUND THE CATHETER. NO LEAKING. ADVISED PT TO LET US KNOW IF HE STARTS EXPERIENCING ANY PAIN, DISCOMFORT, LEAKING AT THE IV SITE, HE VERBALIZED UNDERSTANDING.
--- NOTE | 2023-05-30 22:02 | NUR ---
20g iv placed in rac with 2 attempts. pt tolerated well. good blood return and flushes well. c.o.s in room.
--- NOTE | 2023-05-30 22:05 | NUR ---
20G IV PLACED IN LAC WITH 2 ATTEMPTS. PT TOLERATED WELL. IV HAS GOOD BLOOD RETURN AND FLUSHED WELL. C.O.s IN ROOM.
[2023-05-30 22:46] VITALS: BP 119/63
--- NOTE | 2023-05-31 00:15 | NUR ---
PT SLEEPING, 2 OFFICERS WITH PT, CALL LIGHT IN REACH. CPAP ON WITH O2. IV ABO INFUSING. NO DISTRESS NOTED
[2023-05-31 02:13] VITALS: BP 114/77
--- NOTE | 2023-05-31 02:30 | NUR ---
PT USING CPAP, REQUESTING PAIN MEDS. OXY GIVEN PER ORDERS. ABO STARTED. CALL LIGHT IN REACH, 2 OFFICERS WITH PT. REPOSITIONED PT'S PILLOWS. DENIES OTHER NEEDS.
--- NOTE | 2023-05-31 04:00 | NUR ---
PT SLEEPING, IN NO DISTRESS, CPAP ON, 2 OFFICERS PRESENT. CALL LIGHT IN REACH.
--- NOTE | 2023-05-31 04:21 | NUR ---
PATIENT CALLED TO HAVE HIS URINAL EMPTIED. PATIENT BACK IN BED. INDEPENDENT IN . CALL LIGHT WITHIN REACH. ASSESSMENT AND VITAL SIGNS DONE. WATER REFRESHED.
[2023-05-31 05:07] VITALS: BP 115/73
[2023-05-31 05:26] LABS: HEMATOCRIT 30.8 % (35.0-50.0); HEMOGLOBIN 10.1 g/dL (12.0-18.0); MCH 27.9 (27-36); MCHC 32.7 g/dl (30-36); MCV 85.3 fl (81-99); PLATELET COUNT 253 K/uL (140-440); RBC 3.62 M/ul (4.3-5.7); RDW 14.4 (10.5-15.0)
--- NOTE | 2023-05-31 06:15 | NUR ---
PT SLEEPING CPAP ON, CALL LIGHT IN REACH, IN NO APPARENT DISTRESS. 2 OFFICERS PRESENT
[2023-05-31 06:21] LABS: ALBUMIN 2.1 g/dL (3.4-5.0); ALBUMIN/GLOBULIN RATIO 0.42 (1.1-2.4); BILIRUBIN, TOTAL 0.7 ng/dL (0.2-1.0); BUN/CREATININE RATIO 17.82 (6.0-28.6); CREATININE, SERUM 1.29 mg/dL (0.70-1.30); PROTEIN, TOTAL 7.1 g/dL (6.4-8.2)
[2023-05-31 06:30] LABS: BANDS, MANUAL DIFF 4; BASOPHILS, MANUAL DIFF 1; EOSINOPHILS, MANUAL DIFF 4; LYMPHOCYTES, MANUAL DIFF 16; MONOCYTES, MANUAL DIFF 7; NEUTROPHILS, MANUAL DIFF 68
--- NOTE | 2023-05-31 07:15 | NUR ---
REPORT RECEIVED FROM AMMUNITION ASSEMBLY LABORER RN CLARENCE. PATIENT IS AWAKE AND COUGHING WITH TWO GUARDS AT THE BEDSIDE. AMMUNITION ASSEMBLY LABORER RN AT BEDSIDE ASSISTING WITH TOILETING. PATING CALL LIGHT WITHIN REACH.
[2023-05-31 08:34] LABS: CALCIUM 8.6 mg/dL (8.5-10.1)
--- NOTE | 2023-05-31 09:10 | NUR ---
PATIENT IS LYING IN THE BED IN FOUR POINT RESTRAINTS. SHACKLES IN PLACE WITH TWO LONG TERM GUARDS AT THE BEDSIDE. PATIENT COMPLAINS OF 8/10 PAIN ABOVE THE LEFT SHOULDER BLADE AND WOULD LIKE SOMETHING TO HELP MANAGE IT. TYLENOL AND OXYCODONE ADMINSITERED PER THE EMAR WELL GIVEN A HOT PACK. 0800 AND 0900 MEDICATIONS ADMINISTERED PER THE EMAR AT THIS TIME. PATIENT LUNG SOUNDS ARE CLEAR. PATIENT WITH PRODUCTIVE COUGH. COUGH PRODUCING A THICK AND PINK MUCOUS. DR. COLINDRES NOTIFIED BY THE CHARGE NURSE. OXYGEN BEING HUMIDIFIED TO HELP INCREASE MOISTURE. PATIENT HEART SOUNDS NORMAL WITH S1 AND S2. RADIAL PULSE STRONG AND CAPILLARY REFILL IN THE UPPER AND LOWER EXTREMITIES IS LESS THAN 3 SECONDS. RIGHT KNEE WITH ERYTHEMA AND DRY CRUST. PATIENT STATED NO FURTHER NEEDS AT THIS TIME. CALL LIGHT AND PERSONAL BELONGINGS ARE WITHIN REACH.
--- NOTE | 2023-05-31 09:17 | NUR ---
PATIENT CONTINUES TO BE ON HIGH FLOW 02. DR. LEZAMA TO CONSULT. WHEN PATIENT IS MEDICALLY STABLE, THE PATIENT WILL GO BACK TO [facility].
--- NOTE | 2023-05-31 12:10 | NUR ---
PATIENT GIVEN 5 UNITS OF INSULIN PER SLIDING SCALE ON EMAR. PATIENT THEN MOVED TO THE CHAIR WITH FRONT WHEELED WALKER AND TWO PERSON ASSIST. PATIENT WAS DIZZY UPON STANDING BUT WAS RELIEVED QUICKLY. PATIENT TOLERATED WELL. PATIENT SHEET WAS WET FROM SWEAT. PATIENT TEMPERATURE TAKEN AND IT WAS 98.1 PATIENT DID NOT EXPRESS FEELING WARM. PATIENT VOIDED PRIOR TO MOVING. PATIENT EATING LUNCH IN THE CHAIR WITH EOIC GUARDS AT THE BEDSIDE. PATIENT BEDDING CHANGED. PATIENT STATED NO FURTHER NEEDS AT THIS TIME. CALL LIGHT AND PERSONAL BELONGINGS ARE WITHIN REACH.
[2023-05-31 14:07] VITALS: BP 104/58
--- NOTE | 2023-05-31 14:25 | NUR ---
PATIENT STILL SITTING UPRIGHT IN THE RECLINER. PATIENT VITAL SIGNS AND INTAKE AND OUTPUT VALUES COLLECTED AND DOCUMENTED IN THE CHART. PATIENT LUNG ASSESSMENT COMPLETE. LUNG SOUNDS CLEAR WITH FINE CRACKLES IN THE RIGHT LOWER LOBE. COUGH IS MOIST WITH NO PRODUCTION. WOUND ON RIGHT KNEE WITH NO CHANGE. SITE IS WARM TO THE TOUCH WITH SWELLING. SITE WITH DRY CRUSTING. WOUND IS OPEN TO AIR. PATIENT STATED 5/10 BUT DID NOT REQUEST ANY PAIN MEDICATION. URINAL USED. PATIENT WITH EOCI GUARDS AT THE BEDSIDE. PATIENT STATED NO FURTHER NEEDS AT THIS TIME.
--- NOTE | 2023-05-31 15:29 | NUR ---
PATIENT MOVED BACK TO THE BED WITH FRONT WHEELED WALKER AND TWO RN ASSIST. PATIENT TOLERATED WELL. PATIENT USED URINAL BERFORE LYING BACK IN BED. PATIENT WITH EOCI GUARDS AT BEDSIDE. PATIENT STATED NO FURTHER NEEDS AT THIS TIME. CALL LIGHT IS WITHIN REACH.
[2023-05-31 18:14] VITALS: BP 100/62
--- NOTE | 2023-05-31 18:27 | NUR ---
PATIENT EXPRESSED CONCERN ABOUT NOT GETTING AN EVENING INSULIN DOSE. RN CALLED DR. WANG. MD VERBALIZED STARTING 15 UNITS LANTUS THIS EVENING. RN READ BACK ORDER. STATEDHE WILL PUT THE ORDER IN.
--- NOTE | 2023-05-31 20:38 | NUR ---
Report provided by adri REBOLLAR @ 1915, Patient comfortable in bed, patient states having his shackles changed to soft restraints really helped with the pain and the lidoaine patch to his should helped. Assisted with use of urinal, VSS, O2 at 2.5L/NC and patient denies SOB. Detention gaurds remain at bedside per their protocol for residence of their facility. Patient appreciative and cooperative. Call light within reach.
[2023-05-31 20:49] VITALS: BP 101/54
--- NOTE | 2023-05-31 22:19 | NUR ---
Patient medicated for knee pain per request, lights out, call light in reach, cpap on.
--- NOTE | 2023-05-31 23:23 | NUR ---
Answered patients call light, assisted with use of urinal. No complaints, continues to wear his cpap with sats >90%. call light in reach. Senior Care staff staying at bedside.
--- NOTE | 2023-06-01 00:50 | NUR ---
Patient awake and assisted with use of urinal and then repositioned and now laying on right side with pillows for support. call light in reach.
--- NOTE | 2023-06-01 02:32 | NUR ---
Patient called and requested and given ice water. Assisted with use of urinal, no other needs or request, appears comfortable, call light within reach.
--- NOTE | 2023-06-01 03:53 | NUR ---
Patient appears a sleep, comfortable, cpap on and sats >90%, no distress noted. Right leg elevated on pillow, CMS remains intact. call light within reach.
[2023-06-01 04:20] VITALS: BP 132/84
[2023-06-01 05:35] LABS: HEMATOCRIT 31.5 % (35.0-50.0); MCH 27.3 (27-36); MCHC 31.9 g/dl (30-36); MCV 85.5 fl (81-99); PLATELET COUNT 240 K/uL (140-440); RBC 3.68 M/ul (4.3-5.7); RDW 14.6 (10.5-15.0)
[2023-06-01 05:55] LABS: ALBUMIN 2.1 g/dL (3.4-5.0); ALBUMIN/GLOBULIN RATIO 0.43 (1.1-2.4); ANION GAP 11.3 (7-21); BILIRUBIN, TOTAL 0.5 ng/dL (0.2-1.0); BUN/CREATININE RATIO 21.01 (6.0-28.6); CALCIUM 8.1 mg/dL (8.5-10.1); CREATININE, SERUM 1.38 mg/dL (0.70-1.30); POTASSIUM 4.3 mmol/L (3.5-5.1)
[2023-06-01 06:06] LABS: BANDS, MANUAL DIFF 2; BASOPHILS, MANUAL DIFF 1; EOSINOPHILS, MANUAL DIFF 2; LYMPHOCYTES, MANUAL DIFF 8; MONOCYTES, MANUAL DIFF 4; NEUTROPHILS, MANUAL DIFF 81
--- NOTE | 2023-06-01 06:51 | NUR ---
Patient awake, assisted to void, incont. pad changed, patient assisted to reposition to left side with pillows for support, cpap on and O2 sata at 92% medicated for discomfort per patient request with 5mg oxy. Resting now, call light in reach.
[2023-06-01 06:54] VITALS: BP 113/66
--- NOTE | 2023-06-01 07:10 | NUR ---
REPORT RECEIVED FROM ELEMENTARY VOCAL MUSIC TEACHER RN. PATIENT AWAKE AND REQUESTING PAIN MEDICATION. PATIENT EDUCATED ON THAT IT IS NOT TIME FOR A DOSE HE JUST GOT A DOSE AT 0646. EOCI GUARDS AT THE BEDSIDE. PATIENT STATED NO FURTHER NEEDS AT THIS TIME. CALL LIGHT AND PERSONAL ITEMS ARE WITHIN REACH.
--- NOTE | 2023-06-01 08:26 | NUR ---
PATIENT SITTING UPRIGHT IN BED EATING BREAKFAST WITH TWO EOCI GUARDS AT THE BEDSIDE. 7 UNITS OF INSULIN ADMINISTERED PER THE SLIDING SCALE IN THE EMAR. 0800 AND 0900 MEDICATIONS ADMINISTERED PER THE EMAR. CARDIAC ASSESSMENT NORMAL WITH S1 AND S2 AND CAPILLARY REFILL LESS THAN 3 SECONDS. RADIAL PULSES STRONG WITH FAINT PEDAL PULLSES. LUNG SOUNDS WITH FINE CRACKLES IN THE RIGHT LOWER LOBE, CLEAR AND DIMINISHED IN THE LEFT LOWER LOBE, AND CLEAR IN BILATERAL UPPER LOBES. PATIENT STATED HAVING 6/10 PAIN IN THE RIGHT KNEE. RIGHT KNEE SWOLLEN, PINK, AND WARM. OVERALL IMPROVING. LIDOCAINE PATCH REMOVED. PATIENT IN FOUR POINT CLOTH SHACKLES. PATIENT STATED NO FURTHER NEEDS AT THIS TIME. CALL LIGHT AND PERSONAL BELONINGS ARE WITHIN REACH.
[2023-06-01 14:31] VITALS: BP 151/73
--- NOTE | 2023-06-01 14:45 | NUR ---
CALLED INTO PT ROOM BY GUARDS STATING THEY BELIEVED PT WAS NOT "ACTING RIGHT" PT SITTING UP AWAKE IN CHAIR. BP 123/73, MAP 76, HR 72, 92% ON 3LNC, RR 20. PT ALERT TO SEFL, TIME, PLACE AND SITUATION. BE FAST NEGATIVE. GUARDS STATING PT "WOKE FROM SLEEP, SHAKING AND SAYING HE WAS AT THE POOL WITH FRIENDS" PT DENIES PAIN, LIGHT HEADEDNESS OR DIZZINES. PT ASKED ORIENTATION QUESTIONS AGAIN, ALERT TO SELF, TIME, PLACE AND SITUATION. CALLED DR WANG AND INFORMED HIM OF SITUATION. STATED HE WOULD PUT IN AN ORDER FOR CHEST XRAY AND BLOOD GAS. NO FURTHER ORDERS AT THIS TIME. PT RN NOTIFIED.
[2023-06-01 16:59] LABS: BASE EXCESS, BLOOD GAS -1.2 mmol/L (-2-2); HCO3, BLOOD GAS 23.6 mmol/L (22-26); PCO2, BLOOD GAS 37.8 mmHg (35-45); PO2, BLOOD GAS 60 mmHg (80-100); TOTAL CO2, BLOOD GAS 24.8
[2023-06-01 17:00] LABS: OXYGEN RECEIVED, BLOOD GAS 4L
[2023-06-01 18:25] VITALS: BP 121/70
--- NOTE | 2023-06-01 19:51 | NUR ---
REPORT RECIEVED FROM DAY SHIFT RN. PATIENT SITTING IN CHAIR. CALL LIGHT IN REACH. WHITE BOARD UPDATED.
[2023-06-01 20:45] VITALS: BP 128/58
--- NOTE | 2023-06-01 21:00 | NUR ---
PATIENT SITTING UP IN CHAIR. VS, I&Os AND BLOOD SUGAR OBTAINED AND DOCUMENTED. EVENING MEDICATIONS ADMINISTERED, SEE MAR. ASSESSMENT COMPLETE. RIGHT KNEE RED, SWOLLEN AND WARM. PATIENT STATES 6.8/10 PAIN. PRN PAIN MEDICATION ADMINISTERED. PATIENT VOIDED INTO URINAL. PATIENT UP TO AMBULATE VALDES WITH SBA AND FWW. PATIENT HAD TO TAKE 2 RESTING BREAKS AND DID NOT TOLERATE AMBULATION WELL. FRESH WATER PROVIDED.
--- NOTE | 2023-06-01 22:15 | NUR ---
ROUNDING ON PATIENT. PATIENT IN BED ON BACK WATCHING TV. PATIENT REQUESTING COFFEE, DECAF GIVEN SO PATIENT CAN TRY AND GET SOME REST. CALL LIGHT IN REACH.
--- NOTE | 2023-06-01 23:23 | NUR ---
PATIENT IS RESTING IN BED. PATIENT ASSISTED WITH URINAL. PATIENT ABLE TO VOID. PATIENT DENIES ANY NEEDS. PATIENT RATES PAIN AT A 4/10 AND DENIES THE NEED FOR INTERVENTION AT THIS TIME. PATIENTS CALL LIGHT IN REACH. X2 GUARDS REMAINS IN ROOM. CALL LIGHT IN REACH.
--- NOTE | 2023-06-02 00:04 | NUR ---
PATIENT IN BED ON BACK WITH EYES CLOSED. RESPIRATIONS EVEN AND UNLABORED. CALL LIGHT IN REACH.
--- NOTE | 2023-06-02 01:35 | NUR ---
CALL LIGHT ANSWERED. PATIENT ASSISTED WITH URINAL BY THIS RN TO VOID. PATIENT HAS NO FURTHER NEEDS. CALL LIGHT IN REACH.
--- NOTE | 2023-06-02 02:31 | NUR ---
ROUNDING ON PATIENT. PATIENT RESTING IN BED WITH EYES CLOSED. RESPIRATIONS EVEN AND UNLABORED. CALL LIGHT IN REACH.
--- NOTE | 2023-06-02 04:20 | NUR ---
PATIENT ASSISTED TO USE THE URINAL. PATIENT DENIES ANY FURTHER NEEDS. CALL LIGHT IN REACH. X2 GUARDS REAMINS IN THE ROOM.
[2023-06-02 05:49] VITALS: BP 146/87
[2023-06-02 05:52] LABS: BASOPHILS 0.4 % (0-2); EOSINOPHILS 3.7 % (0-6); HEMATOCRIT 31.5 % (35.0-50.0); HEMOGLOBIN 10.2 g/dL (12.0-18.0); LYMPHOCYTES 9.1 % (24-44); MCH 27.9 (27-36); MCHC 32.5 g/dl (30-36); MCV 85.7 fl (81-99); MONOCYTES 7.4 % (0-12); NEUTROPHILS 79.4 % (39-80); PLATELET COUNT 238 K/uL (140-440); RBC 3.67 M/ul (4.3-5.7); RDW 14.6 (10.5-15.0)
[2023-06-02 06:05] LABS: ALBUMIN 2.2 g/dL (3.4-5.0); ALBUMIN/GLOBULIN RATIO 0.42 (1.1-2.4); BILIRUBIN, TOTAL 0.5 ng/dL (0.2-1.0); BUN/CREATININE RATIO 23.96 (6.0-28.6); CALCIUM 8.4 mg/dL (8.5-10.1); CREATININE, SERUM 1.21 mg/dL (0.70-1.30); PROTEIN, TOTAL 7.4 g/dL (6.4-8.2)
--- NOTE | 2023-06-02 06:23 | NUR ---
VS AND I&Os OBTAINED AND RECORDED. ASSESSMENT COMPLETE. RIGHT KNEE HAS REDNESS AND EDEMA. PATIENT STATES PAIN IN THE RIGHT KNEE. PRN PAIN MEDICATION ADMINISTERED, SEE MAR. COFFEE PROVIDED. PATIENT HAS NO FURTHER NEEDS. CALL LIGHT IN REACH.
--- NOTE | 2023-06-02 07:10 | NUR ---
REPORT RECEIVED FROM ARMATURE VARNISHER RN DENISE. PATIENT RESTING WITH EYES CLOSED. RESPIRATIONS ARE EVEN AND UNLABORED. CPAP ON. EOCI GUARDS AT THE BEDSIDE. CALL LIGHT WITHIN REACH.
--- NOTE | 2023-06-02 07:51 | NUR ---
PATIENT IS SITTING UP IN BED TO EAT BREAKFAST. PATIENT INSISTED ON HAVING HIS AUGMENTIN WITH BREAKFAST. PATIENT ASSISTED TO USE URINAL FOR 100ML. X1 GUARD IN ROOM. PATIENT RATES KNEE AND SHOULDER PAIN 8/10, DESPITE HAVING HAD PAIN PILL AT 0600.
--- NOTE | 2023-06-02 08:15 | NUR ---
PATIENT MOVED TO RECLINER BY ONE PERSON ASSIST WITH FRONT WHEELED WALKER. PATIENT BED LINENS CHANGED. 0800 AND 0900 MEDICATIONS ADMINISTERED PER THE EMAR. RESPIRATORY THERAPY WORKING WITH THE PATIENT NOW. TWO EOCI GUARDS AT THE BEDSIDE. PATIENT STATED NO FURTHER NEEDS AT THIS TIME. CALL LIGHT IS WITHIN REACH.
--- NOTE | 2023-06-02 10:05 | NUR ---
PATIENT ASSESSMENT COMPLETE. LUNG SOUNDS CLEAN IN BALATERAL UPPER LOBES AND DIMINISHED IN BILATERAL LOWER LOBES. PATIENT HEART SOUNDS WITH NORMAL S1 AND S2. CAPILLARY REFILL IN THE UPPER AND LOWER EXTREMITIES ARE LESS THAN THREE SECONDS. PATIENT SITTING UPRIGHT IN THE RECLINER WITH TWO EOCI GUARDS AT THE BEDSIDE. PATIENT LETHARGIC. PATIENT IS IN AND OUT OF SLEEP. RIGHT KNEE WOUND HAS LESS SWELLING AND REDNESS THAN YESTERDAY. PATIENT TOLERATED RN TOUCHING AND LOOKING AT IT WELL. PATIENT STATED NO FURTHER NEEDS AT THIS TIME. CALL LIGHT AND PERSONAL BELONGINS ARE WITHIN REACH.
[2023-06-02 10:20] VITALS: BP 140/72
--- NOTE | 2023-06-02 10:30 | NUR ---
VITALS AND I/O COMPLETE. PATIENT USED URINAL FOR 200ML. PATIENT IS UP TO CHAIR, NO OTHER NEEDS AT THIS TIME.
--- NOTE | 2023-06-02 12:35 | NUR ---
PATIENT UP AND WORKING WITH PT. PATIENT TOLERATED WELL AND WAS ON 2 L NC THROUGHOUT. PATIENT ABLE TO DO THE STAIRS AND WALK A LONGER DISTANCE THAN YESTERDAY. PATIENT IS BACK TO THE ROOM WITH PT.
[2023-06-02 13:20] VITALS: BP 126/66
--- NOTE | 2023-06-02 16:32 | NUR ---
PATIENT PAIN IS A 6/10 IN THE RIGHT KNEE AND THE LEFT SCAPULA AREA. WOUND ASSESSMENT ON RIGHT KNEE IS WARM, RED, AND SWOLLEN. THE REDNESS AND SWELLING HAS CONTINUED TO GO DOWN FROM THIS MORNING. LUNG ASSESSMENT SHOWED CLEAR LUNG SOUNDS. PATIENT ON 2 L NASAL CANNULA. PATIENT EDUCATED THAT HE CAN GET OXYCODONE EVERY 4 HOURS PRN AND TYLENOL EVERY 6 HOURS PRN. PATIENT STATED NO FURTHER NEEDS AT THIS TIME. CALL LIGHT AND PERSONAL BELONGINGS ARE WITHIN REACH.
[2023-06-02 18:41] VITALS: BP 143/75
--- NOTE | 2023-06-02 19:29 | NUR ---
REPORT RECIEVED FROM DAY SHIFT RN. PATIENT RESTING IN BED WATCHING TV. WHITE BOARD UDATED. NO FURTHER NEEDS. CALL LIGHT IN REACH.
[2023-06-02 20:46] VITALS: BP 131/69
--- NOTE | 2023-06-02 21:05 | NUR ---
PATIENT RESTING IN BED WATCHING TV. VS AND I&Os OBTAINED AND RECORDED. PATIENT REPORTS PAIN. PRN MEDICATION ADMISNITERED PER PATIENT REQUEST, SEE MAR. FRESH WATER AND WARM BLANKET PROVIDED. PATIENT ASSISTED TO USE URINAL TO VOID. ASSESSMENT COMPLETE. REDNESS AND EDEMA NOTED ON RIGHT KNEE. PATIENT STATES HIS KNEE FEELS BETTER THAN YESTERDAY. PATIENT ON 2L NC AND 02 SAT IN LOW 90s. PATIENT STATES NO FURTHER NEEDS. CALL LIGHT IN REACH.
--- NOTE | 2023-06-02 22:25 | NUR ---
PATIENT RESTING IN BED ON BACK. THIS RN ADJUSTED THE NC TO FIT BETTER IN PATIENTS NOSE. O2 LOW 90s. NO FURTHER NEEDS. CALL LIGHT IN REACH.
--- NOTE | 2023-06-02 23:47 | NUR ---
PATIENT RESTING IN BED ON BACK WITH EYES CLOSED. RESPIRATIONS EVEN AND UNLABORED. CALL LIGHT IN REACH.
--- NOTE | 2023-06-03 02:34 | NUR ---
PATIENT IN BED RESTING ON BACK WITH EYES CLOSED. RESPIRATIONS EVEN AND UNLABORED. 02 SAT 90% ON 2L NC. CALL LIGHT IN REACH.
--- NOTE | 2023-06-03 03:43 | NUR ---
PATIENT IN BED RESTING WITH EYES CLOSED. RESPIRATION EVEN AND UNLABORED. 2L NC IN PLACE. CALL LIGHT IN REACH.
[2023-06-03 05:49] VITALS: BP 122/76
--- NOTE | 2023-06-03 06:03 | NUR ---
PATIENT AWAKE IN BED. BRIEF SOILED AND CHANGED. VS AND I&Os OBTAINED AND DOCUMENTED. SCHEDULED MEDICATION ADMINISTERED, SEE MAR. FRESH WATER PROVIDED. ROOM CLEAN AND WHITE BOARD UPDATED. ASSESSMENT COMPLETE. PATIENT STATES PAIN IN RIGHT KNEE IS ALMOST A 10/10. RIGHT KNEE IS RED AND WARM. PRN PAIN MEDICATION ADMINISTERED. PATIENT HAS NO FURTHER NEEDS. CALL LIGHT IN REACH.
--- NOTE | 2023-06-03 06:42 | NUR ---
in room changing dressing on L foot. Patient tolerating well.
--- NOTE | 2023-06-03 07:29 | NUR ---
report from Jake rn, pt resting in bed with 2 eoci gaurds present. call light in reach.
[2023-06-03 07:46] VITALS: BP 144/87
--- NOTE | 2023-06-03 09:00 | NUR ---
PATIENT UP IN RECLINER FOR BREAKFAST, 2 OFFICERS ASSISTING. ROOM TIDIED. FRESH ICE WATER AND SOY MILK PROVIDED.
--- NOTE | 2023-06-03 09:18 | NUR ---
talked with dr willy childress to change iv zithromax to po from iv. plan for diurisis this am,
--- NOTE | 2023-06-03 10:05 | NUR ---
pt up in with cpap on, legs elevated, ble edema noted. urinal close by. call light in reach - sonia hernandez present,pt sounds wet and gurgly with his nose mask cpap on - rn stood pt up and repositioned in , enc. pt to swallow secreations. pt now sitting more correctly and hob up in . bending at waist. pt reports using oxygen at facility. call light in reach.
--- NOTE | 2023-06-03 10:19 | NUR ---
LEFT MESSAGE WITH THE VERS TEAM TO DISCUSS TRANSFER TO [facility].
--- NOTE | 2023-06-03 11:08 | NUR ---
SPOKE WITH CORAL REBOLLAR AT [facility]. CONFIRMED THAT THEY DO HAVE AN OXYGEN CONCENTRATOR AT THE FACILITY AND CAN ACCOMMODATE HIS O2 NEEDS WHEN READY FOR DISCHARGED. DISCUSSED PLAN OF CARE PER MD IN AM MEETING TO GIVE LASIX, MONITOR AND CONTINUE PT. UPDATE FAXED TO THE [facility] AT [facility]. WILL CONTINUE TO CONTACT [facility] WITH UPDATED DC PLANS.
--- NOTE | 2023-06-03 12:00 | NUR ---
pt up in ch, void 200 ml yellow urine in urinal.
--- NOTE | 2023-06-03 12:55 | NUR ---
PATIENT IS ON ROOM AIR, PER DR. THOMAS REQUEST. WE WILL RECHECK HIS O2 SATS IN 30 MINUTES. PATIENT WAS PREVIOUSLY ON 1L VIA NC.
--- NOTE | 2023-06-03 13:11 | NUR ---
after 10 min on room air - pt is 88% at rest.
--- NOTE | 2023-06-03 13:29 | NUR ---
pt up in room with rn and rt - using fww. 85% on room air - 4l nc placed to bring oxygen up. see rt note.
--- NOTE | 2023-06-03 13:35 | NUR ---
SPOKE WITH KETURAH MURRAY AT THE [facility]. PATIENT IS NOT ON O2 AT BASELINE AND DOES NOT HAVE O2 TO CPAP. ADVISED BY RN THEY DO HAVE O2 AVAILABLE IF NEEDED WHEN THE PATIENT RETURNS.
[2023-06-03 13:52] VITALS: BP 124/71
--- NOTE | 2023-06-03 15:19 | NUR ---
PATIENT UP TO BATHROOM WITH PT.
--- NOTE | 2023-06-03 15:47 | NUR ---
PER MEETING WITH DR. THOMAS AND STEPHEN RT PATIENT TO DC TOMORROW IF MEDICALLY CLEARED. WILL SEND O2 QUALIFIER AND RT NOTES TO [facility] TO UPDATE.
--- NOTE | 2023-06-03 15:57 | NUR ---
pt up in awaken for meds, nc on at 2l to keep sats 92% currnet. call light in reach. eoci x2 officers in room.
--- NOTE | 2023-06-03 17:15 | NUR ---
THIS OLIVE PICKER IN ROOM TO ASSIST PATIENT WITH URINAL. 2 OFFICERS IN ROOM. PATIENT SITTING UP IN CHAIR AT THIS TIME FOR DINNER. CALL LIGHT IN EASY REACH
[2023-06-03 18:46] VITALS: BP 123/66
--- NOTE | 2023-06-03 19:42 | NUR ---
REPORT RECIEVED FROM DAY SHIFT RN. PATIENT SITTING UP IN CHAIR. NO FURTHER NEEDS. CALL LIGHT IN REACH.
[2023-06-03 20:59] VITALS: BP 135/72
--- NOTE | 2023-06-03 21:15 | NUR ---
PATIENT RESTING IN CHAIR. PATIENT 1 PERSON SBA AND FWW BACK TO BED. VS AND I&Os OBTAINED AND RECORDED. EVENING MEDICATIONS ADMINISTERED, SEE MAR. ASSESSMENT COMEPLETE. PATIENT STATES RIGHT KNEE PAIN AND BACK PAIN. PRN PAIN MEDICATION ADMINISTERED. PATIENT O2 SAT 93% ON CPAP 5L. PATIENT STATES NO FURTHER NEEDS. CALL LIGHT IN REACH. IV FLUSHED AND WNL.
--- NOTE | 2023-06-03 22:31 | NUR ---
PATIENT IN BED RESTING ON BACK WITH EYES CLOSED. 5L CPAP IN PLACE. REPIRATIONS EVEN AND UNLABORED. CALL LIGHT IN REACH.
--- NOTE | 2023-06-04 00:14 | NUR ---
PATIENT RESTING IN BED WITH EYES CLOSED. REPIRATIONS EVEN AND UNLABORED. BIPAP IN PLACE AT 10L. CALL LIGHT IN REACH.
--- NOTE | 2023-06-04 01:39 | NUR ---
PATIENT RESTING IN BED ON BACK WITH EYES CLOSED. RESPIRATIONS EVEN AND UNLABORED. BIPAP IN PLACE ON 10L. CALL LIGHT IN REACH.
--- NOTE | 2023-06-04 02:06 | NUR ---
PATIENT ASSISTED WITH URINAL TO VOID YELLOW URINE. PATIENT INCONTINENT OF URINE. NEW BRIEF AND CHUX IN PLACE. PATIENT STATES NO FURTHER NEEDS. CALL LIGHT IN REACH.
--- NOTE | 2023-06-04 04:05 | NUR ---
PATIENT IN BED ON BACK RESTING WITH EYES CLOSED. BIPAP IN PLACE. O2 SAT 90%. CALL LIGHT IN REACH.
[2023-06-04 05:13] VITALS: BP 140/80
--- NOTE | 2023-06-04 05:20 | NUR ---
PATIENT INCONTINENT OF URINE. BRIEF CHANGED. VS AND I&Os OBTAINED AND RECORDED. FRESH WATER PROVIDED. ASSESSMENT COMPLETE. LUNG SOUNDS WNL. RIGHT KNEE RED AND WARM. PATIENT STATES NO FURTHER NEEDS. CALL LIGHT IN REACH.
[2023-06-04 05:44] LABS: HEMOGLOBIN 10.5 g/dL (12.0-18.0); MCH 27.8 (27-36); MCHC 32.7 g/dl (30-36); MCV 85.2 fl (81-99); PLATELET COUNT 284 K/uL (140-440); RBC 3.76 M/ul (4.3-5.7); RDW 14.8 (10.5-15.0)
--- NOTE | 2023-06-04 05:49 | NUR ---
ASSISTED IN USING URINAL. NO OTHER NEEDS AT THIS TIME.
[2023-06-04 05:54] VITALS: BP 108/63
[2023-06-04 06:01] LABS: BANDS, MANUAL DIFF 1; EOSINOPHILS, MANUAL DIFF 3; LYMPHOCYTES, MANUAL DIFF 16; MONOCYTES, MANUAL DIFF 4; NEUTROPHILS, MANUAL DIFF 76
[2023-06-04 06:07] LABS: ANION GAP 10.8 (7-21); BUN/CREATININE RATIO 19.54 (6.0-28.6); CALCIUM 8.5 mg/dL (8.5-10.1); CREATININE, SERUM 1.33 mg/dL (0.70-1.30); POTASSIUM 3.8 mmol/L (3.5-5.1)
--- NOTE | 2023-06-04 07:00 | NUR ---
REPORT RECEIVED FROM [employer] ATTENDANT RN DENISE. PATIENT IS AWAKE AND REQUESTING TO USE THE URINAL. PATIENT STATED NO FURTHER NEEDS AT THIS TIME. CALL LIGHT AND PERSONAL BELONGINGS ARE WITHIN REACH.
--- NOTE | 2023-06-04 08:52 | NUR ---
PATIENT WITH COMPLAINTS OF 9/10 PAIN IN THE LEFT SCAPULA AND UPPER BACK AREA. PATIENT GIVEN HOT PACK, 10 MG OXYCODONE, AND 650 MG OF TYLENOL. PATIENT EDUCATED ON THE PAIN MEDICATIONS TAKE ABOUT 30 MINUTES TO START WORKING. PATIENT REQUESTING THE AREA BEING RUBBED. LUNG SOUNDS ARE CLEAR IN BILATERAL UPPER LOBES AND CLEAR/DIMINISHED IN BILATERAL LOWER BASES. PATIENT USES CPAP AT NIGHT AND WITH REST. PATIENT CURRENTLY ON 2 L NASAL CANNULA. CARDIAC ASSESSMENT UNREMARKABLE. NORMAL S1 AND S2 WITHI CAPILLAR REFILL IN THE UPPER AND LOWER EXTREMITIES BEING LESS THAN 3 SECONDS. WOUND ASSESSMENT WITH WARMTH, SWELLING AND PINK/RED COLOR. PATIENT NOW UP IN THE CHAIR TO EAT BREAKFAST. PATIENT BEDDING CHANGED AND CLEAN. PATIENT 0800 AND 0900 MEDICATIONS ADMINISTERED PER THE EMAR. TWO [facility] GUARDS ARE AT THE BEDSIDE. PATIENT STATED NO FURTHER NEEDS AT THIS TIME. CALL LIGHT AND PERSONAL BELONGINGS ARE WITHIN REACH.
[2023-06-04 08:55] LABS: BASE EXCESS, BLOOD GAS 5.2 mmol/L (-2-2); HCO3, BLOOD GAS 29.3 mmol/L (22-26); O2 SATURATION, BLOOD GAS 90.8 % (95.0-100.0); PCO2, BLOOD GAS 39.7 mmHg (35-45); PH, BLOOD GAS 7.48 (7.35-7.45); PO2, BLOOD GAS 56 mmHg (80-100); TOTAL CO2, BLOOD GAS 30.5
[2023-06-04 08:56] LABS: OXYGEN RECEIVED, BLOOD GAS 2 L
[2023-06-04] MEDS ORDERED: AMOX TR-K CLV1 EAC1 PO (10:14)
[2023-06-04] MEDS ORDERED: FUROSEMIDE40 MG PO (10:16)
--- NOTE | 2023-06-04 10:19 | NUR ---
PATIENT CURRENTLY WORKING WITH PT.
--- NOTE | 2023-06-04 10:20 | NUR ---
PT WORKING WITH PHYSICAL THERAPY. DID NOT INTERRUPT. PRAYED FOR HOLINESS OF BODILY STRENGTH.
[2023-06-04 11:08] VITALS: BP 114/66
--- NOTE | 2023-06-04 11:32 | NUR ---
PATIENT SHOWER COMPLETE AND NEW CLOTHES PUT ON. PATIENT VITAL SIGNS AND INTAKE AND OUTPUT COLLECTED AND DOCUMENTED. VITAL SIGNS ALL WITHIN NORMAL RANGE. PATIENT ON 2 L NASAL CANNULA AND PULSE OXIMETRY IS BETWEEN 92-94%. REPORT GIVEN TO [facility]. DISCHARGE INSTRUCTIONS AND EDUCTION ON HEART FAILURE AND CELLULITITS COMPLETE. PATIENT STATED HE HAD NO QUESTIONS. DISCHARGE FORM SIGNED BY THE PATIENT. TWO [facility] GUARDS AT THE BEDSIDE. PATIENT STATED NO FURTHER NEEDS AT THIS TIME. CALL LIGHT AND PERSONAL BELONGINGS ARE WITHIN REACH.
== END 2023-06-04 11:44 | disposition home or self-care (01) | DRG 603 ==
LOC: ED 13:55 → MS 19:35
PROVIDERS: Emergency Medicine; Internal Medicine; ADMIT Family Medicine; ATTEND Family Medicine
PROC: 4A033R1 Measurement of Arterial Saturation, Peripheral, Percutaneous Approach (ICD-10-PCS; principal; 2023-05-28)
PROC: 0S9C3ZZ Drainage of Right Knee Joint, Percutaneous Approach (ICD-10-PCS; 2023-05-28)
DX: L03.115 Cellulitis of right lower limb (principal); J81.1 Chronic pulmonary edema; I50.32 Chronic diastolic (congestive) heart failure; E11.9 Type 2 diabetes mellitus without complications; E03.9 Hypothyroidism, unspecified; E66.9 Obesity, unspecified; E78.00 Pure hypercholesterolemia, unspecified; I11.0 Hypertensive heart disease with heart failure; F43.10 Post-traumatic stress disorder, unspecified; Z87.891 Personal history of nicotine dependence; Z79.4 Long term (current) use of insulin; Z95.1 Presence of aortocoronary bypass graft; Z90.49 Acquired absence of other specified parts of digestive tract; Z88.8 Allergy status to other drugs, medicaments and biological substances; Z79.899 Other long term (current) drug therapy; Z79.51 Long term (current) use of inhaled steroids; Z79.890 Hormone replacement therapy; Z79.01 Long term (current) use of anticoagulants; Z11.52 Encounter for screening for COVID-19; Z68.36 Body mass index [BMI] 36.0-36.9, adult
CPT/HCPCS: 36415; 36600; 71045; 80048; 80053; 82553; 82803; 83036; 83605; 83735; 83880; 84100; 85025; 85060; 87040; 87070; 87075; 87205; 87502; 94640; 94760; 94761; 94762; 97116; 97162; 97165; 97530; A9270; C9803; J0456; J0692; J0878; J1650; J1815; J1940; J7030; J7060; U0002